=== PATIENT | male | born 1980 | race Caucasian/White ===

== ENCOUNTER 2021-07-20 01:38 | Inpatient (IN) | payer OTHER ==
[2021-07-20] MEDS ORDERED: Acetaminophen 325 MG TAB PO PRN (02:09)
[2021-07-20] MEDS ORDERED: Dextrose 5% in Water 1,000 ML IV PRN (02:09)
[2021-07-20] MEDS ORDERED: Calcium Carbonate 500 MG ChewTAB PO PRN (02:09)
[2021-07-20] MEDS ORDERED: Dextrose 50% Abboject 50 ML SYRINGE SLOW IVP PRN (02:09)
[2021-07-20] MEDS ORDERED: Nitroglycerin 0.4 MG TAB (25 Tab Bottle) SL PRN (02:18)
[2021-07-20 02:29] VITALS: BMI 28.8
[2021-07-20] MEDS ORDERED: Sodium Chloride 0.9% 500 ML IV SCH (02:30)
[2021-07-20] MEDS: HYDROcodone/Acetaminophen 5/325 mg Tablet PO PRN ×2 (03:10→15:10)
[2021-07-20] MEDS: Cefepime 1 GM in Sodium Chloride 0.9% 100 ML IVPB SCH ×3 (03:22→18:10)
[2021-07-20] MEDS: HumaLOG 300 UNITS/3 ML VIAL SC PRN (03:27)
[2021-07-20] MEDS: Guaifenesin DM 100-10/5 ML UDCUP PO PRN ×3 (03:38→21:17)
[2021-07-20] MEDS: Famotidine 20 MG TAB PO SCH ×2 (08:38→21:05)
[2021-07-20] MEDS: Glimepiride 2 MG TAB PO SCH (08:38)
[2021-07-20] MEDS: Metoprolol Tartrate 25 MG TAB PO SCH ×2 (08:38→21:06)
[2021-07-20] MEDS: Gabapentin 300 MG CAP PO SCH ×2 (08:39→21:04)
[2021-07-20] MEDS: Pregabalin 25 MG CAP PO SCH ×2 (08:39→21:06)
[2021-07-20] MEDS: Aspirin 81 mg Enteric Coated Tablet PO SCH (08:41)
[2021-07-20] MEDS: Lantus 1000 UNITS/10 ML VIAL SC SCH ×2 (08:41→20:58)
[2021-07-20 09:18] LABS: #Eosinphils 0.2 10x3/uL (0.0-0.5); #Monocytes 0.8 10x3/uL (0.0-1.1); #Neutrophils 4.4 10x3/uL (1.5-8.4); %Basophils 0.4 % (0.0-2.0); %Eosinophils 2.2 % (0.0-6.0); %Lymphocytes 23.5 % (18.0-47.0); %Monocytes 11.3 % (0.0-10.0); %Neutrophils 61.5 % (40.0-75.0); Hemoglobin 7.8 g/dL (13.5-17.5); Mean Corpuscular HGB CONC 32.4 g/dL (32.0-36.0); Mean Corpuscular Hemoglobin 29.7 pg (27.0-33.0); Mean Corpuscular Volume 91.6 fl (81.2-95.1); Mean Platelet Volume 9.4 fl (7.4-10.4); Platelet Count 334 10x3/uL (150-450); RBC Distribution Width 13.6 % (11.5-14.5); Red Blood Cell (RBC) Count 2.63 10x6/uL (4.32-5.72); White Blood Cell (WBC) Count 7.2 10x3/uL (3.5-10.5)
[2021-07-20 09:34] LABS: Anion Gap 11 mmol/L (10-20); BUN (Urea Nitrogen) 10 mg/dL (8.9-20.6); Calc. Creatinine Clearance 113 mL/min (70-130); Calcium 8.1 mg/dL (7.8-10.44); Carbon Dioxide 26 mmol/L (22-29); Chloride 104 mmol/L (98-107); Glucose 182 mg/dL (70-105); Potassium 4.4 mmol/L (3.5-5.1); Sodium 137 mmol/L (136-145)
[2021-07-20 09:56] LABS: CKMB 1.4 ng/mL (0-6.6)
[2021-07-20] MEDS ORDERED: Lisinopril 5 MG TAB PO SCH (10:30)
[2021-07-20] MEDS: Ondansetron PF 4 MG/2 ML Vial IVP PRN (13:04)
[2021-07-20 13:33] LABS: Troponin I 0.019 ng/mL (< 0.028)
[2021-07-20 13:41] LABS: Hemoglobin A1c 10.3 % (4.0-6.0)
[2021-07-20] MEDS: Fenofibrate 48 MG TAB PO SCH (21:05)
[2021-07-20] MEDS: Atorvastatin Calcium 40 MG TAB PO SCH (21:05)
[2021-07-21] MEDS: Benzonatate 100 MG CAP PO SCH ×4 (00:22→15:09)
[2021-07-21] MEDS: Cefepime 1 GM in Sodium Chloride 0.9% 100 ML IVPB SCH ×3 (02:01→17:59)
[2021-07-21] MEDS: Lisinopril 5 MG TAB PO SCH (08:48)
[2021-07-21] MEDS: Aspirin 81 mg Enteric Coated Tablet PO SCH (08:48)
[2021-07-21] MEDS: Metoprolol Tartrate 25 MG TAB PO SCH ×2 (08:48→20:59)
[2021-07-21] MEDS: Glimepiride 2 MG TAB PO SCH (08:49)
[2021-07-21] MEDS: Pregabalin 25 MG CAP PO SCH ×2 (08:49→20:59)
[2021-07-21] MEDS: Guaifenesin DM 100-10/5 ML UDCUP PO PRN (08:50)
[2021-07-21] MEDS: Lantus 1000 UNITS/10 ML VIAL SC SCH ×2 (08:50→20:57)
[2021-07-21] MEDS: Famotidine 20 MG TAB PO SCH ×2 (08:50→20:59)
[2021-07-21] MEDS: Gabapentin 300 MG CAP PO SCH ×2 (09:01→20:58)
[2021-07-21] MEDS: HYDROcodone/Acetaminophen 5/325 mg Tablet PO PRN (11:12)
[2021-07-21] MEDS ORDERED: Morphine 4 MG/ML VIAL SLOW IVP SCH (11:30)
[2021-07-21 17:50] LABS: Iron 38 ug/dL (65-175); Iron Binding Capacity, Total 214 mcg/dL (261-462)
[2021-07-21 19:10] LABS: Bilirubin Neg (Negative); Blood, Urine Negative (Negative); Clarity Clear (Clear); Glucose, Urine (Dipstick) Normal (Negative); Ketone, Urine Negative (Negative); Leukocyte 25 (Negative); Nitrite Negative (Negative); Protein, Urine (Dipstick) 100 mg/dl (Neg-Trace); Urobilinogen Normal mg/dL (Less than 2); pH, Urine 6.5 (5.0-9.0)
[2021-07-21 19:20] LABS: Squamous Epithelial 0-3 HPF (0-3); WBC/HPF 0-3 HPF (0-3)
[2021-07-21 19:21] LABS: Bacteria/HPF 1+ HPF (None Seen); Mucous/LPF 1+ LPF (<2+); RBC/HPF None Seen HPF (0-3)
[2021-07-21] MEDS: Atorvastatin Calcium 40 MG TAB PO SCH (20:59)
[2021-07-21] MEDS: Fenofibrate 48 MG TAB PO SCH (20:59)
[2021-07-22] MEDS: Benzonatate 100 MG CAP PO SCH ×4 (00:17→20:42)
[2021-07-22] MEDS: Cefepime 1 GM in Sodium Chloride 0.9% 100 ML IVPB SCH ×3 (02:12→20:34)
[2021-07-22 06:24] LABS: #Basophils 0.1 10x3/uL (0.0-0.2); #Eosinphils 0.1 10x3/uL (0.0-0.5); #Monocytes 0.6 10x3/uL (0.0-1.1); #Neutrophils 6.1 10x3/uL (1.5-8.4); %Basophils 0.6 % (0.0-2.0); %Eosinophils 1.3 % (0.0-6.0); %Lymphocytes 16.2 % (18.0-47.0); %Monocytes 7.4 % (0.0-10.0); %Neutrophils 73.8 % (40.0-75.0); Hemoglobin 10.5 g/dL (13.5-17.5); Mean Corpuscular HGB CONC 32.6 g/dL (32.0-36.0); Mean Corpuscular Hemoglobin 30.3 pg (27.0-33.0); Mean Corpuscular Volume 93.1 fl (81.2-95.1); Mean Platelet Volume 9.4 fl (7.4-10.4); Platelet Count 347 10x3/uL (150-450); Red Blood Cell (RBC) Count 3.46 10x6/uL (4.32-5.72); White Blood Cell (WBC) Count 8.3 10x3/uL (3.5-10.5)
[2021-07-22 06:42] LABS: ALT (SGPT) 12 U/L (8-55); AST (SGOT) 15 U/L (5-34); Albumin 3.3 g/dL (3.5-5.0); Alkaline Phosphatase 107 U/L (40-110); Anion Gap 15 mmol/L (10-20); BUN (Urea Nitrogen) 12 mg/dL (8.9-20.6); Bilirubin, Total 0.5 mg/dL (0.2-1.2); Calc. Creatinine Clearance 114 mL/min (70-130); Calcium 8.6 mg/dL (7.8-10.44); Carbon Dioxide 24 mmol/L (22-29); Chloride 107 mmol/L (98-107); Globulin 3.3 g/dL (2.4-3.5); Glucose 99 mg/dL (70-105); Magnesium 1.3 mg/dL (1.6-2.6); Potassium 5.3 mmol/L (3.5-5.1); Protein, Total 6.6 g/dL (6.0-8.3); Sodium 141 mmol/L (136-145)
[2021-07-22] MEDS: Pregabalin 25 MG CAP PO SCH ×2 (10:33→20:40)
[2021-07-22] MEDS: Gabapentin 300 MG CAP PO SCH ×2 (10:34→20:41)
[2021-07-22] MEDS: Lisinopril 5 MG TAB PO SCH (10:35)
[2021-07-22] MEDS: Aspirin 81 mg Enteric Coated Tablet PO SCH (10:36)
[2021-07-22] MEDS: Metoprolol Tartrate 25 MG TAB PO SCH ×2 (10:36→20:53)
[2021-07-22] MEDS: Lantus 1000 UNITS/10 ML VIAL SC SCH ×2 (10:37→20:43)
[2021-07-22] MEDS: Fenofibrate 48 MG TAB PO SCH (20:41)
[2021-07-22] MEDS: Atorvastatin Calcium 40 MG TAB PO SCH (20:42)
[2021-07-22] MEDS: HumaLOG 300 UNITS/3 ML VIAL SC PRN (20:44)
[2021-07-22] MEDS: Guaifenesin DM 100-10/5 ML UDCUP PO PRN (23:19)
[2021-07-23] MEDS: Cefepime 1 GM in Sodium Chloride 0.9% 100 ML IVPB SCH ×3 (03:43→20:49)
[2021-07-23] MEDS: HumaLOG 300 UNITS/3 ML VIAL SC PRN (03:45)
[2021-07-23 04:44] LABS: Anion Gap 16 mmol/L (10-20); BUN (Urea Nitrogen) 13 mg/dL (8.9-20.6); Calc. Creatinine Clearance 103 mL/min (70-130); Calcium 8.7 mg/dL (7.8-10.44); Carbon Dioxide 24 mmol/L (22-29); Chloride 105 mmol/L (98-107); Glucose 228 mg/dL (70-105); Potassium 4.7 mmol/L (3.5-5.1); Sodium 140 mmol/L (136-145)
[2021-07-23 04:54] LABS: #Eosinphils 0.1 10x3/uL (0.0-0.5); #Monocytes 0.7 10x3/uL (0.0-1.1); #Neutrophils 5.4 10x3/uL (1.5-8.4); %Basophils 0.4 % (0.0-2.0); %Eosinophils 1.3 % (0.0-6.0); %Lymphocytes 16.1 % (18.0-47.0); %Monocytes 9.3 % (0.0-10.0); %Neutrophils 72.2 % (40.0-75.0); Hemoglobin 9.3 g/dL (13.5-17.5); Mean Corpuscular HGB CONC 32.2 g/dL (32.0-36.0); Mean Corpuscular Hemoglobin 29.8 pg (27.0-33.0); Mean Corpuscular Volume 92.6 fl (81.2-95.1); Mean Platelet Volume 9.7 fl (7.4-10.4); Platelet Count 357 10x3/uL (150-450); RBC Distribution Width 13.8 % (11.5-14.5); Red Blood Cell (RBC) Count 3.12 10x6/uL (4.32-5.72); White Blood Cell (WBC) Count 7.4 10x3/uL (3.5-10.5)
[2021-07-23] MEDS: Benzonatate 100 MG CAP PO SCH ×3 (06:26→22:28)
[2021-07-23] MEDS: Gabapentin 300 MG CAP PO SCH ×2 (09:54→20:44)
[2021-07-23] MEDS: Aspirin 81 mg Enteric Coated Tablet PO SCH (09:55)
[2021-07-23] MEDS: Pregabalin 25 MG CAP PO SCH ×2 (09:55→20:45)
[2021-07-23] MEDS: Metoprolol Tartrate 25 MG TAB PO SCH ×2 (09:55→20:46)
[2021-07-23] MEDS: Lisinopril 5 MG TAB PO SCH (09:56)
[2021-07-23] MEDS: Lantus 1000 UNITS/10 ML VIAL SC SCH ×2 (10:02→20:56)
[2021-07-23] MEDS ORDERED: guaiFENesin/Codeine Phosphate 100 mg/10 mg 5 ml UD Cup PO PRN (15:19)
[2021-07-23] MEDS: DAPTOmycin 500 MG in Sodium Chloride 0.9% 100 ML IVPB SCH (16:46)
[2021-07-23] MEDS ORDERED: GoLYTELY 4,000 ml Bottle PO SCH (20:00)
[2021-07-23] MEDS: Atorvastatin Calcium 40 MG TAB PO SCH (20:44)
[2021-07-23] MEDS: Fenofibrate 48 MG TAB PO SCH (20:46)
[2021-07-24 04:29] LABS: #Eosinphils 0.2 10x3/uL (0.0-0.5); #Monocytes 0.6 10x3/uL (0.0-1.1); #Neutrophils 3.7 10x3/uL (1.5-8.4); %Basophils 0.7 % (0.0-2.0); %Eosinophils 2.5 % (0.0-6.0); %Lymphocytes 26.2 % (18.0-47.0); %Neutrophils 60.1 % (40.0-75.0); Hemoglobin 9.2 g/dL (13.5-17.5); Mean Corpuscular HGB CONC 32.3 g/dL (32.0-36.0); Mean Corpuscular Volume 92.8 fl (81.2-95.1); Mean Platelet Volume 9.2 fl (7.4-10.4); Platelet Count 344 10x3/uL (150-450); RBC Distribution Width 13.8 % (11.5-14.5); Red Blood Cell (RBC) Count 3.07 10x6/uL (4.32-5.72); White Blood Cell (WBC) Count 6.1 10x3/uL (3.5-10.5)
[2021-07-24 04:44] LABS: Anion Gap 15 mmol/L (10-20); BUN (Urea Nitrogen) 10 mg/dL (8.9-20.6); Calc. Creatinine Clearance 112 mL/min (70-130); Calcium 8.5 mg/dL (7.8-10.44); Carbon Dioxide 23 mmol/L (22-29); Chloride 106 mmol/L (98-107); Glucose 133 mg/dL (70-105); Potassium 4.8 mmol/L (3.5-5.1); Sodium 139 mmol/L (136-145)
[2021-07-24] MEDS: Metoprolol Tartrate 25 MG TAB PO SCH ×2 (04:55→21:04)
[2021-07-24] MEDS: Benzonatate 100 MG CAP PO SCH ×3 (06:21→21:05)
[2021-07-24] MEDS: Gabapentin 300 MG CAP PO SCH ×2 (08:58→21:04)
[2021-07-24] MEDS: Lisinopril 5 MG TAB PO SCH (08:58)
[2021-07-24] MEDS: Pregabalin 25 MG CAP PO SCH ×2 (09:00→21:04)
[2021-07-24] MEDS: Aspirin 81 mg Enteric Coated Tablet PO SCH (09:00)
[2021-07-24] MEDS: Cefepime 1 GM in Sodium Chloride 0.9% 100 ML IVPB SCH ×2 (09:01→21:07)
[2021-07-24] MEDS: Lantus 1000 UNITS/10 ML VIAL SC SCH ×2 (09:06→21:10)
[2021-07-24] MEDS: HYDROcodone/Acetaminophen 7.5/325 mg Tablet PO PRN ×2 (09:29→18:25)
[2021-07-24] MEDS: Ondansetron PF 4 MG/2 ML Vial IVP PRN (11:30)
[2021-07-24] MEDS: DAPTOmycin 500 MG in Sodium Chloride 0.9% 100 ML IVPB SCH (17:48)
[2021-07-24] MEDS ORDERED: GoLYTELY 4,000 ml Bottle PO SCH (20:00)
[2021-07-24] MEDS: Atorvastatin Calcium 40 MG TAB PO SCH (21:04)
[2021-07-24] MEDS: Fenofibrate 48 MG TAB PO SCH (21:07)
[2021-07-25] MEDS: Guaifenesin DM 100-10/5 ML UDCUP PO PRN (01:06)
[2021-07-25] MEDS: HYDROcodone/Acetaminophen 7.5/325 mg Tablet PO PRN ×4 (01:49→21:48)
[2021-07-25] MEDS: Metoprolol Tartrate 25 MG TAB PO SCH ×2 (07:35→21:48)
[2021-07-25] MEDS ORDERED: PROPOFOL 40 ML ONE (08:10)
[2021-07-25] MEDS: Benzonatate 100 MG CAP PO SCH ×3 (08:11→23:00)
[2021-07-25] MEDS: Pregabalin 25 MG CAP PO SCH ×2 (10:37→21:48)
[2021-07-25] MEDS: Cefepime 1 GM in Sodium Chloride 0.9% 100 ML IVPB SCH (10:38)
[2021-07-25] MEDS: Lisinopril 5 MG TAB PO SCH (10:38)
[2021-07-25] MEDS: Aspirin 81 mg Enteric Coated Tablet PO SCH (10:38)
[2021-07-25] MEDS: Gabapentin 300 MG CAP PO SCH ×2 (10:38→21:46)
[2021-07-25] MEDS: Lantus 1000 UNITS/10 ML VIAL SC SCH ×2 (10:39→21:49)
[2021-07-25] MEDS: DAPTOmycin 500 MG in Sodium Chloride 0.9% 100 ML IVPB SCH (17:41)
[2021-07-25] MEDS: HumaLOG 300 UNITS/3 ML VIAL SC PRN ×2 (17:41→21:51)
[2021-07-25] MEDS: MEROPENEM 1 GM/50 ML 1 GM in Premix Bag 1 BAG IVPB SCH (17:41)
[2021-07-25] MEDS: Ondansetron PF 4 MG/2 ML Vial IVP PRN (17:49)
[2021-07-25] MEDS: Fenofibrate 48 MG TAB PO SCH (21:47)
[2021-07-25] MEDS: Atorvastatin Calcium 40 MG TAB PO SCH (21:47)
[2021-07-26] MEDS: MEROPENEM 1 GM/50 ML 1 GM in Premix Bag 1 BAG IVPB SCH ×3 (00:13→17:59)
[2021-07-26] MEDS: HumaLOG 300 UNITS/3 ML VIAL SC PRN ×2 (05:16→21:38)
[2021-07-26] MEDS: HYDROcodone/Acetaminophen 7.5/325 mg Tablet PO PRN ×4 (05:18→21:40)
[2021-07-26] MEDS: Benzonatate 100 MG CAP PO SCH ×3 (05:41→21:53)
[2021-07-26] MEDS: Gabapentin 300 MG CAP PO SCH ×2 (09:24→21:40)
[2021-07-26] MEDS: Lisinopril 5 MG TAB PO SCH (09:25)
[2021-07-26] MEDS: Pregabalin 25 MG CAP PO SCH ×2 (09:25→21:39)
[2021-07-26] MEDS: Aspirin 81 mg Enteric Coated Tablet PO SCH (09:25)
[2021-07-26] MEDS: Metoprolol Tartrate 25 MG TAB PO SCH ×2 (09:26→21:41)
[2021-07-26] MEDS: Lantus 1000 UNITS/10 ML VIAL SC SCH ×2 (09:26→21:38)
[2021-07-26] MEDS: DAPTOmycin 500 MG in Sodium Chloride 0.9% 100 ML IVPB SCH (17:59)
[2021-07-26] MEDS: Fenofibrate 48 MG TAB PO SCH (21:41)
[2021-07-26] MEDS: Atorvastatin Calcium 40 MG TAB PO SCH (21:41)
[2021-07-27] MEDS: MEROPENEM 1 GM/50 ML 1 GM in Premix Bag 1 BAG IVPB SCH (00:24)
[2021-07-27] MEDS: Benzonatate 100 MG CAP PO SCH ×3 (05:23→21:55)
[2021-07-27] MEDS: Lisinopril 5 MG TAB PO SCH (06:08)
[2021-07-27] MEDS: Metoprolol Tartrate 25 MG TAB PO SCH ×2 (06:08→21:56)
[2021-07-27 08:33] LABS: #Eosinphils 0.2 10x3/uL (0.0-0.5); #Monocytes 0.6 10x3/uL (0.0-1.1); #Neutrophils 2.7 10x3/uL (1.5-8.4); %Basophils 0.8 % (0.0-2.0); %Eosinophils 3.1 % (0.0-6.0); %Lymphocytes 28.6 % (18.0-47.0); %Monocytes 12.4 % (0.0-10.0); %Neutrophils 54.7 % (40.0-75.0); Mean Corpuscular HGB CONC 32.8 g/dL (32.0-36.0); Mean Corpuscular Hemoglobin 29.6 pg (27.0-33.0); Mean Corpuscular Volume 90.2 fl (81.2-95.1); Mean Platelet Volume 9.1 fl (7.4-10.4); Platelet Count 304 10x3/uL (150-450); RBC Distribution Width 13.8 % (11.5-14.5); Red Blood Cell (RBC) Count 3.38 10x6/uL (4.32-5.72); White Blood Cell (WBC) Count 4.9 10x3/uL (3.5-10.5)
[2021-07-27 08:48] LABS: ALT (SGPT) 9 U/L (8-55); AST (SGOT) 11 U/L (5-34); Albumin 3.3 g/dL (3.5-5.0); Alkaline Phosphatase 102 U/L (40-110); Anion Gap 15 mmol/L (10-20); BUN (Urea Nitrogen) 8 mg/dL (8.9-20.6); Bilirubin, Total 0.5 mg/dL (0.2-1.2); Calc. Creatinine Clearance 110 mL/min (70-130); Calcium 8.9 mg/dL (7.8-10.44); Carbon Dioxide 26 mmol/L (22-29); Chloride 104 mmol/L (98-107); Globulin 3.8 g/dL (2.4-3.5); Glucose 145 mg/dL (70-105); Potassium 4.3 mmol/L (3.5-5.1); Protein, Total 7.1 g/dL (6.0-8.3); Sodium 141 mmol/L (136-145)
[2021-07-27] MEDS: Gabapentin 300 MG CAP PO SCH ×2 (09:02→21:55)
[2021-07-27] MEDS: Pregabalin 25 MG CAP PO SCH ×2 (09:03→22:55)
[2021-07-27] MEDS: HYDROcodone/Acetaminophen 7.5/325 mg Tablet PO PRN ×2 (09:03→15:05)
[2021-07-27] MEDS: Aspirin 81 mg Enteric Coated Tablet PO SCH (09:04)
[2021-07-27] MEDS: Meropenem 1 GM in Sodium Chloride 0.9% 100 ML IVPB SCH ×2 (10:38→20:18)
[2021-07-27] MEDS: Lantus 1000 UNITS/10 ML VIAL SC SCH ×2 (19:56→21:57)
[2021-07-27] MEDS: DAPTOmycin 500 MG in Sodium Chloride 0.9% 100 ML IVPB SCH (20:29)
[2021-07-27] MEDS: Fenofibrate 48 MG TAB PO SCH (21:56)
[2021-07-27] MEDS: Atorvastatin Calcium 40 MG TAB PO SCH (21:56)
[2021-07-28] MEDS: Meropenem 1 GM in Sodium Chloride 0.9% 100 ML IVPB SCH ×3 (02:00→19:39)
[2021-07-28] MEDS: Benzonatate 100 MG CAP PO SCH ×3 (05:18→21:03)
[2021-07-28] MEDS: HYDROcodone/Acetaminophen 7.5/325 mg Tablet PO PRN ×4 (05:21→22:07)
[2021-07-28] MEDS: HumaLOG 300 UNITS/3 ML VIAL SC PRN ×2 (05:22→21:00)
[2021-07-28] MEDS: Pregabalin 25 MG CAP PO SCH ×2 (09:57→21:03)
[2021-07-28] MEDS: Lisinopril 5 MG TAB PO SCH (09:58)
[2021-07-28] MEDS: Gabapentin 300 MG CAP PO SCH ×2 (09:58→21:05)
[2021-07-28] MEDS: Aspirin 81 mg Enteric Coated Tablet PO SCH (09:59)
[2021-07-28] MEDS: Metoprolol Tartrate 25 MG TAB PO SCH ×2 (09:59→21:03)
[2021-07-28] MEDS: Lantus 1000 UNITS/10 ML VIAL SC SCH ×2 (10:01→21:02)
[2021-07-28] MEDS: MEROPENEM 1 GM/50 ML 1 GM in Premix Bag 1 BAG IVPB SCH (11:25)
[2021-07-28] MEDS: DAPTOmycin 500 MG in Sodium Chloride 0.9% 100 ML IVPB SCH (18:03)
[2021-07-28] MEDS ORDERED: Ondansetron PF 4 MG/2 ML Vial ONE (18:56)
[2021-07-28] MEDS: Ondansetron PF 4 MG/2 ML Vial IVP PRN (18:59)
[2021-07-28] MEDS ORDERED: Melatonin 3 MG TAB PO PRN (19:58)
[2021-07-28] MEDS: Fenofibrate 48 MG TAB PO SCH (21:03)
[2021-07-28] MEDS: Atorvastatin Calcium 40 MG TAB PO SCH (21:03)
[2021-07-29] MEDS: Meropenem 1 GM in Sodium Chloride 0.9% 100 ML IVPB SCH ×3 (01:02→16:06)
[2021-07-29] MEDS: HumaLOG 300 UNITS/3 ML VIAL SC PRN ×2 (05:37→12:44)
[2021-07-29] MEDS: Benzonatate 100 MG CAP PO SCH ×2 (05:41→16:46)
[2021-07-29] MEDS: HYDROcodone/Acetaminophen 7.5/325 mg Tablet PO PRN ×2 (10:02→21:42)
[2021-07-29] MEDS: Gabapentin 300 MG CAP PO SCH ×2 (10:04→21:43)
[2021-07-29] MEDS: Metoprolol Tartrate 25 MG TAB PO SCH ×2 (10:05→21:41)
[2021-07-29] MEDS: Lisinopril 5 MG TAB PO SCH (10:06)
[2021-07-29] MEDS: Aspirin 81 mg Enteric Coated Tablet PO SCH (10:06)
[2021-07-29] MEDS: Pregabalin 25 MG CAP PO SCH ×2 (10:12→21:40)
[2021-07-29] MEDS: Lantus 1000 UNITS/10 ML VIAL SC SCH ×2 (10:58→21:44)
[2021-07-29] MEDS: DAPTOmycin 500 MG in Sodium Chloride 0.9% 100 ML IVPB SCH (16:07)
[2021-07-29] MEDS: Atorvastatin Calcium 40 MG TAB PO SCH (21:43)
[2021-07-29] MEDS: Fenofibrate 48 MG TAB PO SCH (21:43)
[2021-07-29] MEDS: Ondansetron PF 4 MG/2 ML Vial IVP PRN (21:44)
[2021-07-30] MEDS ORDERED: Meropenem 1 GM VIAL ONE ×2 (02:30)
[2021-07-30] MEDS: Benzonatate 100 MG CAP PO SCH ×3 (02:30→15:45)
[2021-07-30] MEDS: Meropenem 1 GM in Sodium Chloride 0.9% 100 ML IVPB SCH ×2 (02:30→09:27)
[2021-07-30 08:09] LABS: Anion Gap 13 mmol/L (10-20); BUN (Urea Nitrogen) 13 mg/dL (8.9-20.6); Calc. Creatinine Clearance 96 mL/min (70-130); Calcium 8.7 mg/dL (7.8-10.44); Carbon Dioxide 25 mmol/L (22-29); Chloride 104 mmol/L (98-107); Glucose 278 mg/dL (70-105); Potassium 4.9 mmol/L (3.5-5.1); Sodium 137 mmol/L (136-145)
[2021-07-30 08:10] LABS: #Eosinphils 0.2 10x3/uL (0.0-0.5); #Monocytes 0.7 10x3/uL (0.0-1.1); #Neutrophils 4.1 10x3/uL (1.5-8.4); %Basophils 0.6 % (0.0-2.0); %Eosinophils 3.1 % (0.0-6.0); %Lymphocytes 17.8 % (18.0-47.0); %Monocytes 11.9 % (0.0-10.0); %Neutrophils 66.3 % (40.0-75.0); Hemoglobin 9.6 g/dL (13.5-17.5); Mean Corpuscular HGB CONC 33.1 g/dL (32.0-36.0); Mean Corpuscular Hemoglobin 30.4 pg (27.0-33.0); Mean Corpuscular Volume 91.8 fl (81.2-95.1); Mean Platelet Volume 9.3 fl (7.4-10.4); Platelet Count 285 10x3/uL (150-450); RBC Distribution Width 13.8 % (11.5-14.5); Red Blood Cell (RBC) Count 3.16 10x6/uL (4.32-5.72); White Blood Cell (WBC) Count 6.2 10x3/uL (3.5-10.5)
[2021-07-30] MEDS: HYDROcodone/Acetaminophen 7.5/325 mg Tablet PO PRN (09:23)
[2021-07-30] MEDS: Aspirin 81 mg Enteric Coated Tablet PO SCH (09:24)
[2021-07-30] MEDS: Lisinopril 5 MG TAB PO SCH (09:24)
[2021-07-30] MEDS: Pregabalin 25 MG CAP PO SCH (09:25)
[2021-07-30] MEDS: Gabapentin 300 MG CAP PO SCH (09:26)
[2021-07-30] MEDS: Metoprolol Tartrate 25 MG TAB PO SCH (09:26)
[2021-07-30] MEDS: Lantus 1000 UNITS/10 ML VIAL SC SCH (09:28)
[2021-07-30 16:37] VITALS: BP 175/90; TEMP 98.8
== END 2021-07-30 16:39 | disposition home health service (06) | DRG 812 ==
LOC: CSHTELE 01:38 → OBSVTOIN 07-22 15:27 → INTOOBSV 07-22 15:27
PROVIDERS: ADMIT Student in an Organized Health Care Education/Training Program; ATTEND Internal Medicine
PROC: 30233N1 Transfusion of Nonautologous Red Blood Cells into Peripheral Vein, Percutaneous Approach (ICD-10-PCS; principal; 2021-07-22)
PROC: 0DB98ZX Excision of Duodenum, Via Natural or Artificial Opening Endoscopic, Diagnostic (ICD-10-PCS; 2021-07-25)
PROC: 0DJD8ZZ Inspection of Lower Intestinal Tract, Via Natural or Artificial Opening Endoscopic (ICD-10-PCS; 2021-07-25)
DX: D50.9 Iron deficiency anemia, unspecified (principal); N17.9 Acute kidney failure, unspecified; L03.115 Cellulitis of right lower limb; M86.9 Osteomyelitis, unspecified; L02.619 Cutaneous abscess of unspecified foot; Z20.822 Contact with and (suspected) exposure to COVID-19; I10 Essential (primary) hypertension; M19.90 Unspecified osteoarthritis, unspecified site; I25.708 Atherosclerosis of coronary artery bypass graft(s), unspecified, with other forms of angina pectoris; E11.65 Type 2 diabetes mellitus with hyperglycemia; K21.9 Gastro-esophageal reflux disease without esophagitis; R19.5 Other fecal abnormalities; E78.2 Mixed hyperlipidemia; K64.8 Other hemorrhoids; E11.628 Type 2 diabetes mellitus with other skin complications; K63.5 Polyp of colon; E11.69 Type 2 diabetes mellitus with other specified complication; K62.1 Rectal polyp; I25.5 Ischemic cardiomyopathy; K64.4 Residual hemorrhoidal skin tags; Z95.5 Presence of coronary angioplasty implant and graft; Z88.1 Allergy status to other antibiotic agents; Z95.1 Presence of aortocoronary bypass graft; Z88.8 Allergy status to other drugs, medicaments and biological substances; Z79.4 Long term (current) use of insulin; Z79.82 Long term (current) use of aspirin; Z79.899 Other long term (current) drug therapy; Z86.711 Personal history of pulmonary embolism; Z90.49 Acquired absence of other specified parts of digestive tract; Z98.890 Other specified postprocedural states; Z87.891 Personal history of nicotine dependence; Z91.19 Patient's noncompliance with other medical treatment and regimen
CPT/HCPCS: 36415; 36416; 36430; 80048; 80053; 81001; 82274; 82553; 83036; 83540; 83550; 83735; 84145; 85025; 86850; 86900; 86901; 87070; 87076; 87205; 88305; 93005; 93010; 93306; 96365; 96375; G0378; J0692; J0878; J1815; J2185; J2270; J2405; J2704; J3490; J7030; P9016

== ENCOUNTER 2021-08-01 20:02 | Emergency (ER) | payer OTHER ==
[2021-08-01] MEDS ORDERED: Ondansetron PF 4 MG/2 ML Vial ONE (20:51)
[2021-08-01 21:03] LABS: Actual Bicarbonate (HCO3v) 26 mEq/L (22-28); Base Excess 1.7 mEq/L (-2.0 to +3.0); Calcium, Ionized (venous) 1.14 mmol/L (1.16-1.32); Chloride (VBG) 102 mmol/L (98-106); Hemoglobin (Hb) 13.1 g/dL (13.2-17.3); Puncture Site Other Site; pH (venous) 7.44 (7.32-7.43)
[2021-08-01 21:07] LABS: #Eosinphils 0.2 10x3/uL (0.0-0.5); #Monocytes 0.6 10x3/uL (0.0-1.1); #Neutrophils 3.9 10x3/uL (1.5-8.4); %Basophils 0.6 % (0.0-2.0); %Eosinophils 3.6 % (0.0-6.0); %Lymphocytes 24.3 % (18.0-47.0); %Neutrophils 61.2 % (40.0-75.0); Mean Corpuscular HGB CONC 33.7 g/dL (32.0-36.0); Mean Corpuscular Hemoglobin 30.1 pg (27.0-33.0); Mean Corpuscular Volume 89.2 fl (81.2-95.1); Mean Platelet Volume 9.1 fl (7.4-10.4); Platelet Count 324 10x3/uL (150-450); RBC Distribution Width 13.6 % (11.5-14.5); Red Blood Cell (RBC) Count 3.99 10x6/uL (4.32-5.72); White Blood Cell (WBC) Count 6.4 10x3/uL (3.5-10.5)
[2021-08-01 21:12] LABS: Phosphorus 4.2 mg/dL (2.3-4.7)
[2021-08-01 21:14] LABS: ALT (SGPT) 11 U/L (8-55); AST (SGOT) 15 U/L (5-34); Alkaline Phosphatase 111 U/L (40-110); Anion Gap 17 mmol/L (10-20); BUN (Urea Nitrogen) 13 mg/dL (8.9-20.6); Bilirubin, Total 0.7 mg/dL (0.2-1.2); Calc. Creatinine Clearance 0 mL/min (70-130); Calcium 9.9 mg/dL (7.8-10.44); Carbon Dioxide 21 mmol/L (22-29); Chloride 102 mmol/L (98-107); Globulin 4.2 g/dL (2.4-3.5); Glucose 247 mg/dL (70-105); Magnesium 1.4 mg/dL (1.6-2.6); Potassium 4.1 mmol/L (3.5-5.1); Protein, Total 8.2 g/dL (6.0-8.3); Sodium 136 mmol/L (136-145)
[2021-08-01] MEDS ORDERED: Magnesium 2 GM/50 ML BAG (IN WATER) ONE (21:50)
[2021-08-01] MEDS ORDERED: HYDROcodone/Acetaminophen 5/325 mg Tablet ONE (22:34)
[2021-08-01 22:51] LABS: Bilirubin Neg (Negative); Blood, Urine 25 (Negative); Clarity Clear (Clear); Glucose, Urine (Dipstick) 100 mg/dL (Negative); Ketone, Urine Negative (Negative); Leukocyte Negative (Negative); Nitrite Negative (Negative); Protein, Urine (Dipstick) 500 mg/dl (Neg-Trace); Urobilinogen Normal mg/dL (Less than 2)
[2021-08-01 22:59] LABS: Bacteria/HPF 1+ HPF (None Seen); Squamous Epithelial 0-3 HPF (0-3); WBC/HPF 0-3 HPF (0-3)
== END 2021-08-01 23:05 | disposition home or self-care (01) ==
LOC: CSHERS 20:02
DX: R11.2 Nausea with vomiting, unspecified (principal); R19.7 Diarrhea, unspecified; E11.621 Type 2 diabetes mellitus with foot ulcer; I25.2 Old myocardial infarction; E78.5 Hyperlipidemia, unspecified; F17.220 Nicotine dependence, chewing tobacco, uncomplicated; Z86.711 Personal history of pulmonary embolism; G43.909 Migraine, unspecified, not intractable, without status migrainosus
CPT/HCPCS: 36415; 36416; 80053; 81003; 81015; 82010; 82805; 83735; 84100; 85025; 87324; 87449; 94760; 96365; 96375; J2405; J3475

== ENCOUNTER 2021-08-16 14:27 | Emergency (ER) | payer OTHER | END 2021-08-16 17:30 | disposition home or self-care (01) | LOC: CSHERS 14:27 | DX: M54.50 Low back pain, unspecified (principal); M19.072 Primary osteoarthritis, left ankle and foot; I25.10 Atherosclerotic heart disease of native coronary artery without angina pectoris; I25.2 Old myocardial infarction; E11.9 Type 2 diabetes mellitus without complications; Z79.4 Long term (current) use of insulin; E78.5 Hyperlipidemia, unspecified; Z86.711 Personal history of pulmonary embolism; G43.909 Migraine, unspecified, not intractable, without status migrainosus; F17.220 Nicotine dependence, chewing tobacco, uncomplicated | CPT/HCPCS: 72100 ==